=== PATIENT | male | born 2000 | race Caucasian/White ===

== ENCOUNTER 2024-09-28 15:28 | Emergency (ER) | payer OTHER, SELFPAY ==
[2024-09-28 15:51] VITALS: BP 130/67; PULSE 73; RESP 16; TEMP 36.6; O2SAT 100
--- NOTE | 2024-09-28 16:05 | ED_ITS ---
HPI - Male Genitourinary General Chief complaint: Urogenital-Male Stated complaint: blood cloth Source: patient and RN notes reviewed Mode of arrival: ambulatory Limitations: no limitations History of Present Illness HPI Narrative: 24 y/o male presented for c/o left testicular swelling, onset yesterday. swelling first noticed after ejaculation. Reports pain is intermittent, only with occasional movements or bearing down, and with palpation of the left testicle. Endorses 'a swollen vein' to the top of the left testicle. States he experiences a retracted testicle after ejaculation for some time, which he discussed with pcp 3 days ago and plans to have outpt US performed. Denies concern for STD. Denies inability to get or maintain erection, or urinary changes. Took ibuprofen. Related Data Home Medications Medication Instructions Recorded Confirmed No Home Medications 09/28/24 09/28/24 Allergies Allergy/AdvReac Type Severity Reaction Status Date / Time No Known Allergies Allergy Verified 09/28/24 15:59 Review of Systems Review of Systems: CONSTITUTIONAL: Denies body aches, fever, chills, or sweats. CARDIOVASCULAR: Denies chest pain, palpitations, or edema. RESPIRATORY: Denies cough or dyspnea. GASTROINTESTINAL: Denies abdominal pain, nausea, vomiting, or diarrhea. GENITOURINARY: reports testicular swelling denies dysuria, frequency, urgency, hematuria, flank pain SKIN: Denies rash MUSCULOSKELETAL: Denies back pain or myalgia. [facility] Social History Social History Smoking status: Never smoker Alcohol intake: never Comments At time of signature, I have reviewed and agree with nursing past medical, surgical, social and family history unless otherwise noted. Please see nursing chart for further information. There is no relevant family history pertinent to the presenting complaint Exam Narrative: GENERAL: Well-appearing ENT: Mucous membranes pink and moist. CHEST: No respiratory distress. Clear to auscultation. HEART: Regular rate and rhythm. ABDOMEN: Soft, nontender, nondistended, normal active bowel sounds. : Left testicular swelling, tender with palpation to left upper testicle; no erythema or warmth SKIN: Warm, dry NEURO: No focal deficits. Alert and oriented x3. Gait steady. PSYCH: Normal affect. Course Course Emergency Course: Patient is aware of diagnosis, understands and agrees to treatment plan. A nticipatory guidance given. Patient agrees to follow-up as directed and is aware of reasons to seek care at the emergency department. Portions of this record may have been created with voice recognition software Level of Care: Express Care Visit Vital Signs Vital signs: Vital Signs Temperature 98 F 09/28/24 15:51 Pulse Rate 73 09/28/24 15:51 Respiratory Rate 16 09/28/24 15:51 Blood Pressure 130/67 09/28/24 15:51 Pulse Oximetry 100 09/28/24 15:51 Temperature 98 F 09/28/24 15:51 Pulse Rate 73 09/28/24 15:51 Respiratory Rate 16 09/28/24 15:51 Blood Pressure 130/67 09/28/24 15:51 Pulse Oximetry 100 09/28/24 15:51 Reviewed Transfer Transfered to: [place] Transportation: Other (Private vehicle) Transfer rationale: Pt is agreeable to transfer. Requests transfer to [facility] via private vehicle. Risks of transportation reviewed with pt including injury, worsening of condition and . v/u. Report called to hospital, spoke with Katie Piper PA-C, accepting physician. Pt is in stable condition at time of transfer. Advised to remain NPO and go directly to the hospital. MDM - Male Genitourinary MDM Narrative Medical decision making narrative: Pt reports left testicular pain and swelling, advised ER transfer. Differential Diagnosis Differential diagnosis: Likely urinary tract infection and urethritis Discharge Plan Discharge Clinical Impression: Swelling of left testicle Patient Disposition: Acute Care Hospital Condition: Stable Prescriptions: No Action No Home Medications Follow-up/Referrals: PHYSICIAN NOT ON STAFF,NONSTAFF [Primary Care Provider] - Time of Disposition: 16:30
== END 2024-09-28 16:29 | disposition short-term general hospital (02) ==
PROVIDERS: Emergency Provider Nurse Practitioner Family
DX: N44.8 Other noninflammatory disorders of the testis (principal)
CPT/HCPCS: 99212; G0463

== ENCOUNTER 2024-09-28 16:52 | Emergency (ER) | payer OTHER, SELFPAY ==
--- NOTE | ~2024-09-28 | US_ITS ---
US scrotum doppler DATE: 09/28/2024 17:21 INDICATION: Scrotal pain TECHNIQUE: Real-time and color flow imaging of the scrotal contents COMPARISON: None FINDINGS: The right testicle measures approximately 4.4 x 2.2 x 3.2 cm. The left testicle measures approximately 4.6 x 1.9 x 2.8 cm. There is symmetric homogeneous echotexture of the testicles with normal vascular flow. No testicular mass lesion or torsion. 2 mm cyst of the head of the right epididymis. No hydrocele. Left-sided varicocele. IMPRESSION: No testicular mass lesion or torsion Left varicocele Reviewed, dictated and finalized at [facility]. Reviewed, dictated and finalized at [facility].
[2024-09-28 17:05] VITALS: BP 129/51; PULSE 64; RESP 20; TEMP 36.5; O2SAT 100
--- NOTE | 2024-09-28 17:31 | ED_ITS ---
HPI - Male Genitourinary General Chief complaint: Urogenital-Male Stated complaint: scrotal pain Time Seen by Provider: 09/28/24 17:23 History of Present Illness HPI Narrative: 24-year-old male presents to emergency department for swelling to his left testicle a noticed yesterday. Patient states he is concerned that his veins are swollen. He states it is mildly tender, better when he sits down and worse when he is in the same position for a while. He states he has not been sexually active in the past 6 months and denies concern for STDs. Denies penile discharge, dysuria, hematuria, abdominal pain, fever, N/V. He states this has happened in the past but he has never seen a urologist for it. Related Data Home Medications Medication Instructions Recorded Confirmed No Home Medications 09/28/24 09/28/24 Allergies Allergy/AdvReac Type Severity Reaction Status Date / Time No Known Allergies Allergy Verified 09/28/24 16:55 Review of Systems Review of Systems: All systems reviewed & are unremarkable except as noted in HPI and below PMFSH Social History Social History Smoking status: Never smoker Alcohol intake: never Exam Narrative: GENERAL: Well-appearing, well-nourished, and in no acute distress. HEAD: Normocephalic, atraumatic. EYES: EOMI. ENT: Nares clear, no rhinorrhea or epistaxis. Mucous membranes moist. NECK: Supple. CHEST: Clear to auscultation. No respiratory distress. HEART: Regular rate and rhythm. ABDOMEN: Soft, nontender, nondistended, normal active bowel sounds. : Chaperoned by tech Oscar: Minimal tenderness to the left epididymis with overlying edema and palpable enlarged veins to the left scrotum. Right testicle and epididymis are nontender. No scrotal edema. Negative Prehn sign. Cremasteric reflex intact bilaterally. EXTREMITIES: Normal range of motion. No edema. SKIN: Warm, dry, no rash. NEURO: No focal deficits. Alert and oriented x3 Course Vital Signs Vital signs: Vital Signs Temperature 97.7 F 09/28/24 17:05 Pulse Rate 64 09/28/24 17:05 Respiratory Rate 20 09/28/24 17:05 Blood Pressure 129/51 L 09/28/24 17:05 Pulse Oximetry 100 09/28/24 17:05 Temperature 97.7 F 09/28/24 17:05 Pulse Rate 64 09/28/24 17:05 Respiratory Rate 20 09/28/24 17:05 Blood Pressure 129/51 L 09/28/24 17:05 Pulse Oximetry 100 09/28/24 17:05 MDM - Male Genitourinary MDM Narrative Medical decision making narrative: 24-year-old male presents to the emergency department For left testicular swelling for 1 day. Vitals are stable. Exam significant for the above. Urinalysis is unremarkable. GC and chlamydia test are pending. Patient denies sexual partners in the past 6 months and agrees to check online portal for results prior to treatment. Scrotal ultrasound reveals no testicular mass, lesion or torsion. There is a left varicocele which is consistent with the exam. Patient was advised to follow-up with urology. Strict ED return precautions discussed. He is agreeable to plan verbalized understanding. Discharged in stable condition Lab Data Labs: Lab Results 09/28/24 Range/Units 18:37 Urine Color Yellow (Yellow) Urine Appearance Clear (Clear) Urine pH 7.0 (5.0-9.0) Ur Specific [place] 1.007 (1.001-1.035) Urine Protein Negative (Negative) mg/dL Urine Glucose (UA) Negative (Negative) mg/dL Urine Ketones Negative (Negative) mg/dL Ur Blood (Man) Negative (Negative) Urine Nitrate Negative (Negative) Urine Bilirubin Negative (Negative) Urine Urobilinogen 0.2 (<2.0) mg/dL Leukocyte Esterase Rfl Negative (Negative) MARV/UL Discharge Plan Discharge Clinical Impression: Varicocele Patient Disposition: Home, Self-Care Condition: Stable Instructions: Antibiotic Form, Varicocele (ED), Testicle Pain (ED) Additional Instructions: you were evaluated in the emergency department for testicular swelling. Your found have a varicocele as discussed. Please follow-up with urologist. Check her line portal to see your gonorrhea chlamydia and talk test results. If positive, seek treatment at urgent care, primary care or the emergency department. Return to the emergency department if you develop significantly worsening pain, fever, abdominal pain or other concerning symptoms. Prescriptions: No Action No Home Medications Follow-up/Referrals: PHYSICIAN NOT ON STAFF,NONSTAFF [Primary Care Provider] - Rakan Camarena MD [Physician] - 1 Day
[2024-09-28 18:45] LABS: Add Urine Microscopic? NO; Appearance Urine Clear (Clear); Bilirubin Urine Negative (Negative); Blood Urine Negative (Negative); Color Urine Yellow (Yellow); Glucose Urine UA Negative (Negative); Ketones Urine Negative (Negative); Leukocyte Esterase Ur Negative LEU/UL (Negative); Nitrate Urine Negative (Negative); Protein Urine Negative (Negative); Specific Grav Ur 1.007 (1.001-1.035); Urobilinogen Urine 0.2 mg/dL (<2.0)
[2024-09-28 19:08] VITALS: BP 129/58; PULSE 78; RESP 12; O2SAT 98
== END 2024-09-28 19:59 | disposition home or self-care (01) ==
PROVIDERS: Emergency Provider Physician Assistant
DX: I86.1 Scrotal varices (principal)
CPT/HCPCS: 76870; 81003; 93976; 99284